=== PATIENT | female | born 1965 | race Caucasian/White ===

== ENCOUNTER → 2020-01-14 | Outpatient (CLI) | payer OTHER ==
[2015-02-28 16:20] VITALS: BP 117/78
[~2020-01-14] MED LIST: ACET325T9 PO; ACET500T68 PO; BUPR100T6 PO; BUPR75TA5 PO; ESOM40CA PO; HYDR-2155 PO; HYDR-2678 PO; IBUP200T44 PO; LEVO500T59 PO; LEXAPRO20 MG PO; LORA0.5T21 PO; NITR100C62 PO; TRAZ-120 PO
== END | disposition home or self-care (01) ==
LOC: LAB 00:29
PROVIDERS: ATTEND Nurse Practitioner Family
DX: Z20.828 Contact with and (suspected) exposure to other viral communicable diseases (principal)
CPT/HCPCS: C9803; U0003; 36415

== ENCOUNTER → 2021-01-19 | Outpatient (CLI) | payer OTHER ==
[2015-02-28 16:20] VITALS: BP 117/78
== END ==
LOC: LAB 07:56
PROVIDERS: ATTEND Internal Medicine Cardiovascular Disease
DX: Z20.822 Contact with and (suspected) exposure to COVID-19 (principal)
CPT/HCPCS: U0005

== ENCOUNTER → 2021-01-26 | Outpatient (CLI) | payer OTHER ==
[2015-02-28 16:20] VITALS: BP 117/78
== END ==
LOC: LAB 09:18
PROVIDERS: ATTEND Internal Medicine Cardiovascular Disease
DX: Z20.822 Contact with and (suspected) exposure to COVID-19 (principal)
CPT/HCPCS: U0003

== ENCOUNTER → 2021-02-02 | Outpatient (CLI) | payer OTHER ==
[2015-02-28 16:20] VITALS: BP 117/78
== END ==
LOC: LAB 08:00
PROVIDERS: ATTEND Internal Medicine Cardiovascular Disease
DX: Z20.822 Contact with and (suspected) exposure to COVID-19 (principal)
CPT/HCPCS: U0003

== ENCOUNTER → 2021-02-11 | Outpatient (CLI) | payer OTHER ==
[2015-02-28 16:20] VITALS: BP 117/78
== END ==
LOC: LAB 11:50
PROVIDERS: ATTEND Internal Medicine Cardiovascular Disease
DX: Z20.822 Contact with and (suspected) exposure to COVID-19 (principal)
CPT/HCPCS: C9803; U0003

== ENCOUNTER → 2021-02-19 | Outpatient (CLI) | payer OTHER ==
[2015-02-28 16:20] VITALS: BP 117/78
== END ==
LOC: LAB 09:00
PROVIDERS: ATTEND Internal Medicine Cardiovascular Disease
DX: Z20.822 Contact with and (suspected) exposure to COVID-19 (principal)
CPT/HCPCS: C9803; U0003

== ENCOUNTER → 2021-03-01 | Outpatient (CLI) | payer OTHER ==
[2015-02-28 16:20] VITALS: BP 117/78
== END ==
LOC: LAB 11:00
PROVIDERS: ATTEND Internal Medicine Cardiovascular Disease
DX: Z20.822 Contact with and (suspected) exposure to COVID-19 (principal)
CPT/HCPCS: C9803; U0003

== ENCOUNTER → 2021-03-08 | Outpatient (CLI) | payer OTHER ==
[2015-02-28 16:20] VITALS: BP 117/78
== END ==
LOC: LAB 15:00
PROVIDERS: ATTEND Internal Medicine Cardiovascular Disease
DX: Z20.822 Contact with and (suspected) exposure to COVID-19 (principal)
CPT/HCPCS: C9803; U0003

== ENCOUNTER → 2021-03-15 | Outpatient (CLI) | payer OTHER ==
[2015-02-28 16:20] VITALS: BP 117/78
== END ==
LOC: LAB 11:00
PROVIDERS: ATTEND Internal Medicine Cardiovascular Disease
DX: Z20.822 Contact with and (suspected) exposure to COVID-19 (principal)
CPT/HCPCS: C9803; U0003

== ENCOUNTER → 2021-03-20 | Outpatient (CLI) | payer OTHER ==
[2015-02-28 16:20] VITALS: BP 117/78
== END ==
LOC: LAB 14:37
PROVIDERS: ATTEND Internal Medicine Cardiovascular Disease
DX: Z20.822 Contact with and (suspected) exposure to COVID-19 (principal)
CPT/HCPCS: U0003

== ENCOUNTER → 2021-03-31 | Outpatient (CLI) | payer OTHER ==
[2015-02-28 16:20] VITALS: BP 117/78
== END ==
LOC: LAB 13:00
PROVIDERS: ATTEND Internal Medicine Cardiovascular Disease
DX: Z20.822 Contact with and (suspected) exposure to COVID-19 (principal)
CPT/HCPCS: C9803; U0003

== ENCOUNTER → 2021-04-07 | Outpatient (CLI) | payer OTHER ==
[2015-02-28 16:20] VITALS: BP 117/78
== END ==
LOC: LAB 07:03
PROVIDERS: ATTEND Internal Medicine Cardiovascular Disease
DX: U07.1 COVID-19 (principal)
CPT/HCPCS: U0003

== ENCOUNTER → 2021-07-02 | Outpatient (CLI) | payer OTHER ==
[2015-02-28 16:20] VITALS: BP 117/78
== END ==
LOC: LAB 18:59
PROVIDERS: ATTEND Internal Medicine Cardiovascular Disease
DX: U07.1 COVID-19 (principal)
CPT/HCPCS: U0003